=== PATIENT | female | born 1970 | race Caucasian/White ===

== ENCOUNTER 2020-10-13 17:26 | Emergency (ER) | payer BC ==
[2020-10-13 17:35] VITALS: RESP 18; TEMP 98.4
--- NOTE | 2020-10-13 17:35 | ED ---
General Adult HPI - General Chief complaint: Extremity Problem,Nontraumatic Stated complaint: leg pain Time Seen by Provider: 10/13/20 17:31 Source: patient, EMS Mode of arrival: EMS Limitations: no limitations - History of Present Illness Initial comments: Patient presents the ED by ambulance for evaluation. Patient states that she awoke 6 days ago with pain in her left groin/hip that radiated down her left leg to her knee. Patient states that she was seen in an urgent care at that time, and she states that she was told that she had sciatica. Patient states that she was started on a Medrol Dosepak, which she states that she is still currently taking. Patient states that she has also been taking Tylenol and Motrin for her pain. Patient states that her symptoms had been improving until today when she developed sudden left groin/hip pain while standing. Patient states that she has also had mild numbness/tingling at times along her left lateral thigh. Patient denies any known trauma or injury. Patient denies fever or chills, headache, chest pain, dyspnea, dizziness, abdominal pain, nausea/vomiting/diarrhea, dysuria or urinary symptoms, back or flank pain, leg weakness, incontinence or urinary retention, or any other symptoms or complaints. - Related Data Home Medications Medication Instructions Recorded Confirmed Acetaminophen Tab [Tylenol Tab] 1,000 mg PO Q6HR PRN 10/13/20 10/13/20 Cholecalciferol [Vitamin D3 (25 25 mcg PO DAILY 10/13/20 10/13/20 Mcg = 1000 Iu)] Cyclobenzaprine [Flexeril] 10 mg PO ONCE PRN 10/13/20 10/13/20 Ibuprofen [Motrin Ib] 800 mg PO Q8H PRN 10/13/20 10/13/20 Levothyroxine Sodium [Synthroid] 125 mcg PO DAILY 10/13/20 10/13/20 Losartan [Cozaar] 50 mg PO DAILY 10/13/20 10/13/20 Multivitamins, Thera [Multivitamin 1 tab PO DAILY 10/13/20 10/13/20 (formulary)] Omeprazole 20 mg PO DAILY 10/13/20 10/13/20 amLODIPine [Norvasc] 5 mg PO DAILY 10/13/20 10/13/20 methylPREDNISolone Dose Pack See Taper PO DAILY 10/13/20 10/13/20 [Medrol Dose Pack] Allergies Allergy/AdvReac Type Severity Reaction Status Date / Time Sulfa (Sulfonamide Allergy Rash/Hives Verified 10/13/20 18:40 Antibiotics) Review of Systems ROS Statement: Those systems with pertinent positive or pertinent negative responses have been documented in the HPI. ROS Other: All systems not noted in ROS Statement are negative. Past Medical History Past Medical History: Sleep Apnea/CPAP/BIPAP, Thyroid Disorder History of Any Multi-Drug Resistant Organisms: None Reported Past Surgical History: Cholecystectomy Additional Past Surgical History / Comment(s): 2014 Past Psychological History: No Psychological Hx Reported Smoking Status: Second hand smoke exposure Past Alcohol Use History: None Reported Past Drug Use History: None Reported General Exam Limitations: no limitations General appearance: alert, in no apparent distress Head exam: Present: atraumatic, normocephalic Eye exam: Present: normal appearance, EOMI ENT exam: Present: mucous membranes moist Neck exam: Present: other (Trachea is in midline) Respiratory exam: Present: normal lung sounds bilaterally. Absent: respiratory distress, wheezes, rales, rhonchi, stridor Cardiovascular Exam: Present: regular rate, normal rhythm, normal heart sounds, other (Normal dorsalis pedis pulses bilaterally) GI/Abdominal exam: Present: soft. Absent: tenderness Back exam: Absent: tenderness Neurological exam: Present: alert, oriented X3, other (Patient has no evidence of lower extremity neurological deficit or saddle anesthesia on examination). Absent: motor sensory deficit Psychiatric exam: Present: normal affect, normal mood Skin exam: Present: warm, dry, intact, normal color Course Vital Signs 10/13/20 17:27 Temperature 98.4 F Pulse Rate 78 Respiratory 18 Rate Blood Pressure 164/84 O2 Sat by Pulse 100 Oximetry - Reevaluation(s) Reevaluation #1: 10/13/20 19:04 Patient states that her pain has improved significantly with ED treatment, and she denies development of any new symptoms while in the ED. Patient and are aware of the patient's imaging findings, and patient feels comfortable going home with her at this time. Patient was counseled about leg pain/radicular pain, and she was clearly explained return and follow-up instructions. Patient was instructed to follow up closely with her primary care provider. Patient feels comfortable with this plan. Medical Decision Making - Medical Decision Making Patient's imaging studies are fairly unremarkable. Patient denies trauma or injury. Patient also denies incontinence or urinary retention. Patient has no evidence of saddle anesthesia or neurological deficit on examination. I suspect that the patient's left leg pain is likely radicular in etiology. Patient was counseled about radicular leg pain (rest, analgesics, physical therapy). Will discharge patient home with her at this time. - Radiology Data Radiology results: report reviewed (Lumbosacral spine x-rays: Mild degenerative changes at L5-S1, no fracture), image reviewed (Left hip x-rays are negative for acute fracture or dislocation) Disposition Clinical Impression: Left leg pain, Left lumbar radiculopathy Disposition: HOME SELF-CARE Condition: Stable Instructions (If sedation given, give patient instructions): Lumbar Radiculopathy (ED), Leg Pain (ED) Additional Instructions: Return to the ER immediately should you develop new or worsening pain, new or worsening numbness, weakness, trouble controlling your bladder or bowels, a fever, vomiting, shortness of breath, feeling dizzy or faint, or new or worsening symptoms. Follow up closely with your primary care provider. Is patient prescribed a controlled substance at d/c from ED?: No Referrals: David Gotti MD [Primary Care Provider] - 1-2 days Time of Disposition: 19:09
[2020-10-13] MEDS ORDERED: HYDROmorphone 1 MG/ML 1 ML SYRINGE IVP STA (17:46)
--- NOTE | 2020-10-13 18:23 | XR ---
EXAMINATION TYPE: XR lumbar spine 2 or 3V DATE OF EXAM: 10/13/2020 COMPARISON: NONE HISTORY: Leg pain TECHNIQUE: 3 views FINDINGS: Lumbar vertebra have normal alignment. There is some narrowing at L5-S1 disc. Posterior arnulfo ments are intact. Sacroiliac joints appear intact. There are clips from cholecystectomy. IMPRESSION: Mild degenerative changes at L5-S1. No fracture
--- NOTE | 2020-10-13 18:25 | XR ---
EXAMINATION TYPE: XR Hip Complete LT DATE OF EXAM: 10/13/2020 COMPARISON: NONE HISTORY: Leg pain TECHNIQUE: 2 views FINDINGS: I see no fracture nor dislocation. Hip joint space is normal. Sacroiliac joint appears norm al. There is no evidence of hip dysplasia. IMPRESSION: Negative left hip exam
[2020-10-13] MEDS ORDERED: ACET/COD 300 MG/30 MG STARTER PACK 6 TAB BTL PO STA (19:06)
[2020-10-13 19:19] VITALS: BP 159/94; PULSE 81
== END 2020-10-13 19:22 | disposition home or self-care (01) ==
LOC: EC 17:26
DX: M54.16 Radiculopathy, lumbar region (principal); E07.9 Disorder of thyroid, unspecified; G47.33 Obstructive sleep apnea (adult) (pediatric); Z79.890 Hormone replacement therapy; Z99.89 Dependence on other enabling machines and devices; Z88.2 Allergy status to sulfonamides; Z77.22 Contact with and (suspected) exposure to environmental tobacco smoke (acute) (chronic); Z90.49 Acquired absence of other specified parts of digestive tract
CPT/HCPCS: 72100; 73502; 99283; 96374; J1170